=== PATIENT | female | born 1950 | race Two or more races ===

== ENCOUNTER 2023-12-01 10:22 | Outpatient (CLI) | payer OTHER | END 2023-12-01 10:33 | disposition home or self-care (01) | LOC: RAD 10:22 | DX: J45.31 Mild persistent asthma with (acute) exacerbation (principal) ==

== ENCOUNTER 2023-12-03 10:20 | Emergency (ER) | payer OTHER ==
[~2023-12-03] VITALS: Ht 154.9 cm; Wt 63.5 kg
== END 2023-12-03 17:44 | disposition home or self-care (01) ==
LOC: ER 10:20
DX: R03.0 Elevated blood-pressure reading, without diagnosis of hypertension (principal); I10 Essential (primary) hypertension

== ENCOUNTER → 2024-08-16 | Emergency (ER) | payer OTHER ==
[~2024-08-16] VITALS: Ht 154.9 cm; Wt 64.4 kg
[2024-08-16 17:22] LABS: HEMATOCRIT 40.6 % (36.0-45.00); HEMOGLOBIN 13.7 g/dL (12.0-15.00); MEAN CELL VOLUME 79.7 fL (80.00-100.00); MEAN CORPUSCULAR HEMOGLOBIN 26.9 pg (27.00-32.0); MEAN CORPUSCULAR HGB CONC 33.7 g/dl (32.0-36.0); PLATELET COUNT 296 K/uL (150-450); RED BLOOD COUNT 5.09 M/uL (4.00-6.00); RED CELL DISTRIBUTION WIDTH 13.4 % (11.5-14.5)
[2024-08-16 17:55] LABS: INR 0.99; PARTIAL THROMBOPLASTIN TIME 30.5 SECONDS (22.0-34.0); PROTHROMBIN TIME 10.8 SECONDS (9.0-11.5)
[2024-08-16 18:02] LABS: CALCIUM 9.8 mg/dL (8.5-10.1); CREATININE SERUM 0.68 mg/dL (0.55-1.02); GFR 84.81; POTASSIUM 3.77 mEq/L (3.5-5.1)
== END | disposition left against medical advice (07) ==
LOC: ER 14:53
PROVIDERS: Emergency Medicine
DX: I10 Essential (primary) hypertension (principal)